=== PATIENT | female | born 1970 | race African-American/Black ===

== ENCOUNTER → 2018-05-01 | Outpatient (CLI) | payer OTHER ==
[~2018-05-01] MED LIST: ACCUNEB SO1.25 MG/1 INH; ACETAMINOPHEN325 M1 PO; BACTRIM DS TAB1 EACH PO; CARMOL TP; CORICIDIN COLD1 EACH PO; GAS RELIEF80 MG PO; GUAIFENESIN-CODE5 ML PO; IBUPROFEN 200200 M1 PO; NOHOMEMEDICATIONS; NORCO 5-325 TA1 EACH PO; PERCOCET PO; POTASSIUM20 PO; PREDNISONE 20 M20 MG PO; TESSALON PERLE100 MG PO; VENTOLIN HFA 1818 GM INH; [UNRECOGNIZED DRUG - OTHER] TP
--- NOTE | ~2018-05-01 | EKG ---
[address] [address] ELECTROCARDIOGRAM REPORT Name: KELLY RICARDO Room #: [facility]#: [id number] Admission: 05/01/18 Attend Phys: Sedrick Bryan MD, F Discharge: Date of : 72 Report #: [id number] THIS REPORT FOR: //name// [facility] Test Date: 2018-05-01 Test Time: 08:59:52 Pat Name: KELLY RICARDO Department: Room: Gender: F Director Global: GABRIELA : 1970 Requested By: Sedrick Bryan Order Number: [id number] MD: Measurements Intervals [place] Rate: 63 P: 2 [place]: 140 QRS: 0 QRSD: 81 T: 11 QT: 440 QTc: 451 Interpretive Statements Sinus rhythm Baseline wander in lead(s) V1 No previous ECG available for comparison [email or web address] By: Maame Isabel MD /EPI
[2018-05-01 08:21] LABS: ABSOLUTE NEUTROPHILS 3.4 thou/uL (1.4-8.2); BASOPHILS 0.4 % (0.0-2.0); EOSINOPHILS 2.2 % (0.0-3.0); HEMATOCRIT 39.2 % (37.0-47.0); HEMOGLOBIN 13.1 gm/dL (12.0-15.0); LYMPHOCYTES 38.1 % (24.0-44.0); MCH 31.2 pg (26.0-34.0); MCHC 33.5 g/dL (28.0-37.0); MONOCYTES 9.3 % (1.0-8.0); PLATELET COUNT 290 thou/uL (150-400); RBC 4.21 mil/uL (4.20-5.00); RDW 13.8 % (10.5-14.5); WBC 6.7 thou/uL (4.0-11.0)
[2018-05-01 08:36] LABS: ALBUMIN 3.4 g/dL (3.4-5.0); CALCIUM 9.1 mg/dL (8.5-10.1); POTASSIUM 3.6 mmol/L (3.5-5.1); TOTAL BILIRUBIN 0.3 mg/dL (<0.1-1.0); TOTAL PROTEIN 6.9 g/dL (6.4-8.2)
== END ==
LOC: LABMALL 07:57
PROVIDERS: Surgery
DX: Z01.818 Encounter for other preprocedural examination (principal); E78.5 Hyperlipidemia, unspecified; E66.01 Morbid (severe) obesity due to excess calories

== ENCOUNTER 2018-05-11 05:19 | Day surgery (SDC) | payer OTHER ==
[~2018-05-11] VITALS: Ht 157.5 cm; Wt 91.6 kg
--- NOTE | ~2018-05-11 | O ---
[facility] [place] [address] OPERATIVE REPORT Name: KELLY RICARDO Room #: DEP [facility] M.R.#: [id number] Admission: 05/11/18 Attend Phys: Sedrick Bryan MD, F Discharge: 05/12/18 Date of : 72 Report #: [id number] THIS REPORT FOR: //name// CC: Breanne Bryan DATE OF SERVICE: 05/11/2018 PREOPERATIVE DIAGNOSES: 1. Class 2 obesity with comorbidities. 2. Hypertension. 3. Sleep apnea. 4. Hypercholesterolemia. POSTOPERATIVE DIAGNOSES: 1. Class 2 obesity with comorbidities. 2. Hypertension. 3. Sleep apnea. 4. Hypercholesterolemia. PROCEDURE: Laparoscopic sleeve gastrectomy with EGD. SURGEON: Sedrick Bryan MD LYMPHEDEMA THERAPIST: Landon Andrew MD ANESTHESIA: General endotracheal anesthesia and local anesthetic. ESTIMATED BLOOD LOSS: 5 mL. SPECIMEN: Lateral stomach. COMPLICATIONS: None appreciated. INDICATIONS FOR PROCEDURE: This is a 47-year-old female patient of Dr. Breanne Sarabia, who stands 5 feet 2 inches, weighing 201 pounds with a BMI of 37. Her maximum weight is 217 pounds. She has had difficulty with her weight since her 30s. Her issues began with control pills and a subsequent hysterectomy and she has been unable to lose weight since that time. She has tried numerous weight loss programs and plans including specialized diets, exercises and medications such as Adipex. The most weight she has lost is 20-30 pounds. Any amount of weight she has lost, she has quickly regained, plus additional weight after stopping the modality. She has weight-associated comorbid conditions as listed above. She has been cleared from a multidisciplinary standpoint for bariatric surgery. She presents now for laparoscopic sleeve gastrectomy with EGD. [address] [address] OPERATIVE REPORT Name: KELLY RICARDO Room #: DEP [facility] Ayo#: [id number] Admission: 05/11/18 Attend Phys: Sedrick Bryan MD, F Discharge: 05/12/18 Date of : 72 Report #: [id number] OPERATIVE FINDINGS: On EGD, the patient had a normal appearing esophagus down to the GE junction and Z-line. A hiatal hernia was not appreciated. This was confirmed when the scope was retroflexed within the antrum and a hiatal hernia was not seen on a retroflexed view. The stomach and duodenum to the third portion were without polyps, masses, diverticula, or ulcers. Laparoscopically, the patient had an enlarged stomach as expected. The liver was relatively normal in appearance. The small bowel and colon in the surrounding area appeared otherwise normal. No other significant intraabdominal pathology was seen. The gastric sleeve staple line was located 4 cm lateral/proximal to the pylorus, 3 cm lateral to the incisura of the stomach, and 1 cm lateral to the GE junction. There was no evidence for staple line leak. Immediately after applying 14 mL of Tisseel to the gastric sleeve staple line, the gastroscope was used to gently insufflate carbon dioxide into the sleeve, whereby no air bubbles were seen forming in the Tisseel, indicative of negative leak test. Endoluminally, the gastric sleeve was smooth and contoured without evidence for hemorrhage. The excised stomach held 1000 mL of fluid on the back table. DESCRIPTION OF PROCEDURE IN DETAIL: After the benefits and risks of the procedure were explained to the patient which include but are not limited to risks of bleeding, infection, postoperative pain, postoperative expectations and risks of DVT and pulmonary embolus, informed consent was obtained. The patient was identified in the preoperative holding area. The patient was given IV antibiotics as documented in the chart in line with [facility] protocol. The patient was then taken to the operating room and was placed in the supine position. The patient was given IV sedation and was intubated without incident. SCDs were placed on the patient's bilateral lower extremities prior to induction of anesthesia. The patient had been placed in the modified low lying dorsal lithotomy position in stirrups on the beanbag. The beanbag and the patient were taped to the bed to secure the patient. A time-out was then performed to correctly identify the patient and procedure. An orogastric tube was placed by anesthesia. A bite block was placed and the fiberoptic EGD scope was passed into the patient's oropharynx, down the esophagus, into the stomach, and into the third portion of the duodenum. Findings are as noted above. The scope was slowly withdrawn into the antrum and the scope was retroflexed. The hiatus was visualized. The scope was then straightened and the end of the gastroscope was placed at the pylorus. The stomach was decompressed with the scope. [facility] [address] [place] [address] OPERATIVE REPORT Name: KELLY RICARDO Room #: DEP [facility] M.R.#: [id number] Admission: 05/11/18 Attend Phys: Sedrick Bryan MD, F Discharge: 05/12/18 Date of : 72 Report #: [id number] The patient's abdomen was then prepped and draped in the standard sterile fashion with surgical prep. Local anesthetic was infiltrated into the skin and subcutaneous tissue in the left supraumbilical area where a sharp #15-blade scalpel was used to make a 5-mm incision. The 5-mm Visiport was placed intraperitoneally with the 5-mm 0-degree angled laparoscope. Pneumoperitoneum was then achieved with insufflation of carbon dioxide to 15 mmHg. A 5-mm 30-degree angled laparoscope was then inserted. The 15-mm port was placed in the right supraumbilical area after local anesthetic was infiltrated into the skin and subcutaneous tissue and an appropriately sized incision was made. Two additional 5 mm ports were placed in the left abdomen after local anesthetic was infiltrated and incisions were made. All ports were placed under direct visualization. The patient was then placed in reverse Trendelenburg position. Local anesthetic was infiltrated into the skin and subcutaneous tissue in the subxiphoid area and a 5-mm incision was made through which a 5-mm obturator was passed into the abdominal cavity through the fascia to create a passageway for the Freedom liver retractor. The retractor was placed to retract the liver anteriorly. The retractor was held in place with the Iron Animal Herder apparatus. All abdominal adhesions were then taken down with blunt dissection, sharp dissection and judicious use of the ultrasonic dissector. The gastrosplenic ligament and short gastric vessels were then divided using the ultrasonic dissector with appropriate traction. Bleeding points were made hemostatic with the ultrasonic dissector. Dissection was carried proximally up to the left mauro of the diaphragm. The distal end point of dissection was then measured at 4 cm proximal to the pylorus. The short gastric vessels and gastrocolic ligaments were dissected to that level. The stomach was then rotated medially to visualize any posterior attachments/adhesions to the stomach. The adhesions were dissected with a combination of sharp dissection and use of the ultrasonic dissector. The endoscope was then slightly withdrawn to place it along the lesser curvature of the stomach. Suction was applied to the orogastric tube which was then removed, leaving the endoscope in place as a 34-[place] bougie. The gastric sleeve was then created. Two black loads of the powered endoscopic JAMAR stapler buttressed with Kita-Strips were used to staple and divide the stomach 4 cm proximal/lateral to the pylorus. Additional green loads buttressed with Kita-strips were used to staple off the remainder of the stomach using the endoscope as the bougie. Care was taken to ensure that greater than 3 cm of space was present between the incisura and the staple line. The stomach was fully transected and placed in the right upper quadrant of the abdomen for later removal. 14 mL of Tisseel was applied to the entire length of the staple line with the Duplospray aerosolizer to fully ensure hemostasis. The leak test was performed next. The sleeve was insufflated with the endoscope which was slowly withdrawn. No air bubbles were seen forming in the [facility] [address] [place] [address] OPERATIVE REPORT Name: KELLY RICARDO Room #: DEP [facility] M.R.#: [id number] Admission: 05/11/18 Attend Phys: Sedrick Bryan MD, F Discharge: 05/12/18 Date of : 72 Report #: [id number] Tisseel laparoscopically. Endoluminally, no bleeding was seen. The stomach was fully decompressed and the scope was slowly withdrawn. The Freedom liver retractor was then loosened from the Iron Animal Herder apparatus and it was removed without difficulty. The stomach was then removed from the patient's body through the 15-mm port under direct visualization. A small amount stretching of the fascia was required to create an opening large enough for removal of the stomach. After its removal, the 15-mm port site fascial opening was closed with an 0-PDS suture using the Adam-Rito laparoscopic fascial closure device. All ports were removed after the abdominal cavity was desufflated. The fascial suture was tied. Interrupted subcuticular 4-0 Monocryl sutures and Dermabond were used to close all skin incisions. The patient tolerated the procedure well. The patient was awakened, extubated and taken to the recovery room in stable condition with no apparent intraoperative complications. <ELECTRONICALLY SIGNED> By: Sedrick Bryan MD, FACS 05/14/18 1017 1133 1221 Sedrick Bryan MD, FACS /nt
--- NOTE | ~2018-05-11 | PATH ---
[facility] [address] [place] [address] PATHOLOGY RPT PROCEDURE Name: MARGARET RICARDO Room #: DEP [place] M.R.#: [id number] Admission: 05/11/18 Date of : 72 Discharge: 05/12/18 Report #: [id number] Path Case #: [id number] [facility] Accession Number: [id number] . 01 Material submitted: . PORTION OF STOMACH-SLEEVE GASTRECTOMY . 01 Clinical history: . Morbid obesity . 02 Diagnosis: Stomach, portion of stomach, sleeve gastrectomy: - No diagnostic abnormalities present, history of morbid obesity. (IUV/db; 05/12/18) LBQ/05/12/2018 . 02 Electronically signed: . Caroline Quiles MD, Pathologist NPI- [id number] . 01 Gross description: . The specimen is received in formalin, labeled "Margaret Wiley, portion of stomach - sleeve gastrectomy" is a portion of stomach (15 x 5.5 x 2.0 cm) with a stapled margin. The serosa is osorio-white and smooth. Opening the specimen reveals osorio-red mucosa and no discrete ulcers, polyps or masses. Wrapping Machine Helper tissue is submitted in A1-A3. (SWS; 05/11/2018) SHS/SHS . 02 Pathologist provided ICD-10: E66.01 . 02 CPT . 730161 Specimen Comment: A courtesy copy of this report has been sent to Specimen Comment: [phone], . Specimen Comment: Report sent to ,DR RODAS / DR GIPSON Specimen Comment: A duplicate report has been generated due to demographic updates. Performed at: [address], [place] [id number] MD Angel Meza MD Phone: [phone] Performed at: [address] [id number] MD Caroline Quiles MD Phone: [phone]
[2018-05-11 09:22] VITALS: BP 132/92
[2018-05-11 16:38] VITALS: BP 143/87
[2018-05-11 20:30] VITALS: BP 141/72
[2018-05-12 05:24] VITALS: BP 138/74
[2018-05-12 06:03] LABS: ABSOLUTE NEUTROPHILS 8.3 thou/uL (1.4-8.2); BASOPHILS 0.3 % (0.0-2.0); EOSINOPHILS 0.1 % (0.0-3.0); HEMATOCRIT 36.8 % (37.0-47.0); HEMOGLOBIN 12.4 gm/dL (12.0-15.0); MCH 31.3 pg (26.0-34.0); MCHC 33.6 g/dL (28.0-37.0); MCV 93.1 fL (80.0-100.0); MONOCYTES 8.2 % (1.0-8.0); PLATELET COUNT 259 thou/uL (150-400); POLYS 73.4 % (36.0-66.0); RBC 3.96 mil/uL (4.20-5.00); RDW 13.4 % (10.5-14.5); WBC 11.3 thou/uL (4.0-11.0)
[2018-05-12 06:11] LABS: CALCIUM 8.1 mg/dL (8.5-10.1); CREATININE 0.8 mg/dL (0.6-1.0); POTASSIUM 3.6 mmol/L (3.5-5.1)
[2018-05-12 07:34] VITALS: BP 152/82
[2018-05-12 10:09] VITALS: BP 152/82
== END 2018-05-12 10:42 | disposition home or self-care (01) ==
LOC: OR → TBA 05:19 → OR 05:19 → 4E 17:11 → OR 05-12 10:42
PROVIDERS: Surgery
DX: E66.01 Morbid (severe) obesity due to excess calories (principal); K40.20 Bilateral inguinal hernia, without obstruction or gangrene, not specified as recurrent; K42.9 Umbilical hernia without obstruction or gangrene; I10 Essential (primary) hypertension; J44.9 Chronic obstructive pulmonary disease, unspecified; G47.33 Obstructive sleep apnea (adult) (pediatric); E78.00 Pure hypercholesterolemia, unspecified; Z68.37 Body mass index [BMI] 37.0-37.9, adult; Z98.51 Tubal ligation status; Z98.890 Other specified postprocedural states; Z79.891 Long term (current) use of opiate analgesic; Z79.899 Other long term (current) drug therapy
CPT/HCPCS: 10783; 50010; 50101; 50222; 50249; 50555; 50739; 50740; 50962; 51436; 51437; 52182; 52265; 53307; 53311; 54022; 54118; 56462; 56525; 56526; 57092; 62110; 62900; 70005

== ENCOUNTER 2018-07-03 08:25 | Emergency (ER) | payer OTHER ==
[~2018-07-03] VITALS: Ht 157.5 cm; Wt 79.4 kg
[2018-07-03 08:25] VITALS: BP 151/89
[2018-07-03] MEDS ORDERED: ACULAR 0.5% EYE5 ML OPHTHALMIC (09:27)
[2018-07-03] MEDS ORDERED: MOBIC15 MG PO (09:27)
== END 2018-07-03 09:30 | disposition home or self-care (01) ==
LOC: ER 08:25
DX: H20.9 Unspecified iridocyclitis (principal); Z88.8 Allergy status to other drugs, medicaments and biological substances

== ENCOUNTER 2019-12-31 00:59 | Emergency (ER) | payer OTHER ==
[~2019-12-31] VITALS: Ht 157.5 cm; Wt 63.5 kg
[~2019-12-31 00:59] MED LIST changes: +ACULAR 0.5% EYE5 ML OPHTHALMIC; +MOBIC15 MG PO
[2019-12-31] MEDS ORDERED: NEURONTIN 300M300 M2 PO (01:03)
[2019-12-31] MEDS ORDERED: LORAZEPAM 1 MG T1 MG PO (01:04)
[2019-12-31 01:45] LABS: ABSOLUTE NEUTROPHILS 6.5 thou/uL (1.4-8.2); BASOPHILS 0.9 % (0.0-2.0); EOSINOPHILS 1.1 % (0.0-3.0); HEMOGLOBIN 12.8 gm/dL (12.0-15.0); LYMPHOCYTES 27.2 % (24.0-44.0); MCH 32.7 pg (26.0-34.0); MCHC 33.7 g/dL (28.0-37.0); MONOCYTES 9.1 % (1.0-8.0); PLATELET COUNT 264 thou/uL (150-400); POLYS 61.7 % (36.0-66.0); RBC 3.91 mil/uL (4.20-5.00); RDW 13.8 % (10.5-14.5); WBC 10.5 thou/uL (4.0-11.0)
[2019-12-31 01:47] LABS: ANION GAP 9 mmol/L (7-16); BUN 13 mg/dL (7-18); CALCIUM 7.8 mg/dL (8.5-10.1); CHLORIDE 104 mmol/L (98-107); CO2 25 mmol/L (21-32); CREATININE 0.9 mg/dL (0.6-1.0); GLUCOSE 86 mg/dL (74-106); POTASSIUM 3.6 mmol/L (3.5-5.1); SODIUM 138 mmol/L (136-145)
[2019-12-31 01:57] LABS: ALBUMIN 3.3 g/dL (3.4-5.0); MAGNESIUM 2.2 mg/dL (1.8-2.4); SGOT 16 U/L (15-37); SGPT 15 U/L (30-65); TOTAL BILIRUBIN 0.4 mg/dL (0.2-1.0); TOTAL PROTEIN 7.1 g/dL (6.4-8.2); TROPONIN-I <0.06 ng/mL (<0.06)
[2019-12-31] MEDS ORDERED: NAPROXEN375 MG PO (02:48)
[2019-12-31] MEDS ORDERED: TRAMADOL 50 MG50 MG PO (02:48)
[2019-12-31 03:10] VITALS: BP 133/72
--- NOTE | 2019-12-31 08:30 | EKG ---
[facility] [place] [address] ELECTROCARDIOGRAM REPORT Name: KELLY RICARDO Room #: DEP [facility]#: [id number] Admission: 12/31/19 Attend Phys: Discharge: 12/31/19 Date of : 72 Report #: [id number] THIS REPORT FOR: cc: Breanne Sarabia Diane C. DO Lundgren, Craig H. MD [facility] THIS REPORT FOR: //name// [facility] ED Test Date: 2019-12-31 Test Time: 01:09:04 Pat Name: KELLY RICARDO Department: Room: Gender: Wax Pattern Coater: [facility] : 1970 Requested By: Ben Tafoya Order Number: [id number] MD: Alexi Santamaria Measurements Intervals [place] Rate: 62 P: -4 [place]: 126 QRS: -13 QRSD: 92 T: 15 QT: 427 QTc: 434 Interpretive Statements Sinus rhythm Normal tracing Compared to ECG 05/01/2018 08:59:52 No significant changes Electronically Signed On 12-31-2019 8:28:33 CDT by Alexi Santamaria [email or web address] <ELECTRONICALLY SIGNED> By: Alexi Santamaria MD, FAC 12/31/19 0828 0109 0109 Alexi Santamaria MD, [facility] /EPI
== END 2019-12-31 03:10 | disposition home or self-care (01) ==
LOC: ER 00:59
PROVIDERS: Emergency Medicine
DX: R07.89 Other chest pain (principal); E83.51 Hypocalcemia; F17.200 Nicotine dependence, unspecified, uncomplicated; Z88.5 Allergy status to narcotic agent; Z79.899 Other long term (current) drug therapy; Z98.51 Tubal ligation status

== ENCOUNTER 2020-04-21 02:08 | Emergency (ER) | payer OTHER ==
[~2020-04-21] VITALS: Ht 157.5 cm; Wt 67.1 kg
[~2020-04-21 02:08] MED LIST changes: +LORAZEPAM 1 MG T1 MG PO; +NAPROXEN375 MG PO; +NEURONTIN 300M300 M2 PO; +TRAMADOL 50 MG50 MG PO
[2020-04-21] MEDS ORDERED: NOHOMEMEDICATIONS (02:09)
[2020-04-21 02:55] LABS: ABSOLUTE NEUTROPHILS 5.8 thou/uL (1.4-8.2); BASOPHILS 1.1 % (0.0-2.0); HEMATOCRIT 38.3 % (37.0-47.0); LYMPHOCYTES 26.2 % (24.0-44.0); MCH 32.4 pg (26.0-34.0); MCV 95.4 fL (80.0-100.0); MONOCYTES 7.5 % (1.0-8.0); PLATELET COUNT 300 thou/uL (150-400); POLYS 64.2 % (36.0-66.0); RBC 4.02 mil/uL (4.20-5.00); RDW 13.4 % (10.5-14.5); WBC 9.1 thou/uL (4.0-11.0)
[2020-04-21 03:01] LABS: CALCIUM 8.3 mg/dL (8.5-10.1); CREATININE 0.7 mg/dL (0.6-1.0); POTASSIUM 4.1 mmol/L (3.5-5.1)
[2020-04-21 03:07] LABS: ALBUMIN 3.5 g/dL (3.4-5.0); TOTAL BILIRUBIN 0.3 mg/dL (0.2-1.0); TOTAL PROTEIN 7.5 g/dL (6.4-8.2)
[2020-04-21 03:26] LABS: URINE BILIRUBIN NEGATIVE (Negative); URINE BLOOD 3+ (Negative); URINE CLARITY CLOUDY; URINE COLOR RED; URINE GLUCOSE-RANDOM* NEGATIVE (Negative); URINE KETONES TRACE (Negative); URINE PROTEIN (DIPSTICK) 3+ (Negative)
[2020-04-21 03:29] LABS: URINE LEUKOCYTES-REFLEX 1+ (Negative); URINE NITRITE-REFLEX POSITIVE (Negative)
[2020-04-21 03:42] LABS: CASTS None Seen /LPF (None Seen); MUCUS None Seen strn/LPF (None Seen); SQUAMOUS 0-3 Few /LPF (0-3); URINE RBC >20 Many /HPF (0-2)
[2020-04-21 03:43] LABS: CRYSTALS None Seen /LPF (None Seen)
[2020-04-21] MEDS ORDERED: KEFLEX500 M1 PO (04:37)
[2020-04-21] MEDS ORDERED: PYRIDIUM200 MG PO (04:37)
[2020-04-21 04:42] VITALS: BP 138/81
== END 2020-04-21 04:43 | disposition home or self-care (01) ==
LOC: ER 02:08
PROVIDERS: Emergency Medicine
DX: N30.01 Acute cystitis with hematuria (principal); Z88.8 Allergy status to other drugs, medicaments and biological substances

== ENCOUNTER 2020-11-12 08:23 | Emergency (ER) | payer OTHER ==
[~2020-11-12] VITALS: Ht 157.5 cm; Wt 67.1 kg
[~2020-11-12 08:23] MED LIST changes: +KEFLEX500 M1 PO; +PYRIDIUM200 MG PO
[2020-11-12 10:02] LABS: ABSOLUTE NEUTROPHILS 5.9 thou/uL (1.4-8.2); BASOPHILS 0.5 % (0.0-2.0); EOSINOPHILS 0.2 % (0.0-3.0); HEMATOCRIT 38.9 % (37.0-47.0); LYMPHOCYTES 29.1 % (24.0-44.0); MCH 31.6 pg (26.0-34.0); MCHC 33.4 g/dL (28.0-37.0); MCV 94.7 fL (80.0-100.0); MONOCYTES 7.8 % (1.0-8.0); PLATELET COUNT 277 thou/uL (150-400); POLYS 62.4 % (36.0-66.0); RBC 4.11 mil/uL (4.20-5.00); RDW 14.2 % (10.5-14.5); WBC 9.4 thou/uL (4.0-11.0)
[2020-11-12 10:16] VITALS: BP 163/95
[2020-11-12] MEDS ORDERED: AZITHROMYCIN500 MG PO (10:48)
[2020-11-12] MEDS ORDERED: TESSALON PERLE100 MG PO (10:48)
[2020-11-12] MEDS ORDERED: PREDNISONE 20 M20 MG PO (10:48)
--- NOTE | 2020-11-12 15:13 | EKG ---
[address] [address] [place] [address] ELECTROCARDIOGRAM REPORT Name: KELLY RICARDOELYN [id number] Admission: 11/12/20 Attend Phys: Discharge: 11/12/20 Date of : 72 Report #: [id number] [facility] ED Test Date: 2020-11-12 Test Time: 10:05:21 Pat Name: KELLY RICARDO Department: Room: Gender: F Hides Inspector: BRIAN : 1970 Requested By: Thiago Espinoza Order Number: [id number] MD: Alexi Santamaria Measurements Intervals [place] Rate: 109 P: 48 [place]: 126 QRS: -12 QRSD: 90 T: 7 QT: 373 QTc: 503 Interpretive Statements Sinus tachycardia Nonspecific T wave abnormality Prolonged QT interval Compared to ECG 12/31/2019 01:09:04 No significant change was found Electronically Signed On 11-12-2020 15:13:07 CDT by Alexi Santamaria [email or web address] <ELECTRONICALLY SIGNED> By: Alexi Santamaria MD, [facility] 11/12/20 1513 1005 1005 Alexi Santamaria MD, FACC /EPI
--- NOTE | 2020-11-12 15:17 | EKG ---
[place] [address] [facility] [place] [address] ELECTROCARDIOGRAM REPORT Name: KELLY RICARDOELYN [id number] Admission: 11/12/20 Attend Phys: Discharge: 11/12/20 Date of : 72 Report #: [id number] [facility] ED Test Date: 2020-11-12 Test Time: 09:49:53 Pat Name: KELLY RICARDO Department: Room: Gender: F Broadcast Director Operations: kkreisepratik : 1970 Requested By: Thiago Espinoza Order Number: [id number] MD: Alexi Santamaria Measurements Intervals [place] Rate: 91 P: 53 [place]: 131 QRS: -21 QRSD: 136 T: 30 QT: 379 QTc: 467 Interpretive Statements Sinus rhythm Prolonged QT interval Compared to ECG 12/31/2019 01:09:04 QT interval is lengthened Baseline artifact is now present Electronically Signed On 11-12-2020 15:17:29 CDT by Alexi Santamaria [email or web address] <ELECTRONICALLY SIGNED> By: Alexi Santamaria MD, [facility] 11/12/20 1517 0949 Alexi Santamaria MD, FACC /EPI
== END 2020-11-12 11:18 | disposition home or self-care (01) ==
LOC: ER 08:23
PROVIDERS: Emergency Medicine
DX: J40 Bronchitis, not specified as acute or chronic (principal); Z88.8 Allergy status to other drugs, medicaments and biological substances; Z20.828 Contact with and (suspected) exposure to other viral communicable diseases